=== PATIENT | female | born 1975 | race Caucasian/White ===

== ENCOUNTER 2016-11-20 12:43 | Emergency (ER) | payer OTHER, MEDICAID ==
[2016-11-20 12:59] VITALS: BP 89/31; PULSE 92; RESP 16; TEMP 98.4; O2SAT 98
--- NOTE | 2016-11-20 13:36 | DX ---
Chest, PA and Lateral Upright Views November 20, 2016 at 1:03 p.m. Clinical History: 41-year-old female with a cough for two weeks, chest congestion, and pain. Comparison Study: None. Findings: The lungs are hyperexpanded and there is mild central perihilar bronchial wall thickening. There is no focal alveolar consolidation, pleural effusion, peripheral interstitial edema, or pneumot horax. The cardiac silhouette size is asthenic. The trachea is midline. The osseous structures are ag e-appropriate. Impression: Lung hyperexpansion with mild perihilar bronchitis, but no focal alveolar consolidation.
--- NOTE | 2016-11-20 13:53 | UCPHY ---
H & P Time Seen by Provider: 11/20/16 13:52 Patient Type: New HPI/ROS: Chief complaint. Cough HPI. 41-year-old female cough for several days. The family has been sick in the they have been treating infections back and forth. Now she has a cough that is occasionally productive as well as low-grade fever. Slight sore throat. No vomiting or diarrhea. No shortness of breath or chest discomfort ROS Constitutional. Fever Eyes. no problems with vision ENT. no sore throat, no nasal drainage Cardiovascular. no chest pain Respiratory. Cough Abdominal. no abdominal pain, no nausea/vomiting, no diarrhea . no problems urinating MS. no calf pain/swelling, no neck/back pain, no joint pain Skin. no rash Lymph. no swollen glands Neuro. no headache, no dizziness, no difficulty walking or with speech Past Medical/Surgical History: Exercise-induced asthma Social History: , nonsmoker, no alcohol Smoking Status: Never smoked Physical Exam: General Appearance: Alert pleasant well-developed female mild distress vital signs are stable Eyes: Pupils equal and round no pallor or injection. ENT, pharynx mildly injected without exudate Respiratory: There are no retractions, lungs are clear to auscultation. Cardiovascular: Regular rate and rhythm. Gastrointestinal: Abdomen is soft and nontender, no masses, bowel sounds normal. Neurological: Awake and alert, sensory and motor exams grossly normal. Skin: Warm and dry, no rashes. Musculoskeletal: Neck is supple nontender. Extremities symmetrical, full range of motion. Psychiatric: Patient is oriented X 3, there is no agitation. Constitutional: Initial Vital Signs Temperature (C) 36.9 C 11/20/16 12:55 Heart Rate 92 11/20/16 12:55 Respiratory Rate 16 11/20/16 12:55 Blood Pressure 89/31 L 11/20/16 12:55 O2 Sat (%) 98 11/20/16 12:55 O2 Delivery Mode Room Air Allergies/Adverse Reactions: acetaminophen [From Percocet] Allergy (Unknown, Verified 11/20/16 12:58) oxycodone HCl [From Percocet] Allergy (Unknown, Verified 11/20/16 12:58) Home Medications: Medication Instructions Recorded Azithromycin [Zithromax] 250 mg PO DAILY #6 tab 11/20/16 Medical Decision Making - Diagnostics Imaging: Chest x-ray interpreted by me shows no evidence of pneumonia. Consistent with bronchitis ED Course/Re-evaluation: Patient and I discussed treatment plan, imaging study results, criteria for return importance of follow-up and further evaluation she expresses understanding and agreement Differential Diagnosis: Consistent with bronchitis. Bacterial verses viral. I considered pneumonia as well Departure - Departure Disposition: Home, Routine, Self-Care Clinical Impression: Bronchitis Condition: Good Instructions: Acute Bronchitis (ED) Additional Instructions: Use your inhaler for the next few days while ill. Zithromax is antibiotic. Return for worsening symptoms. Re-evaluation 2-3 days if not improving Referrals: Leobardo Wright MD [Medical Doctor] - 3-4 days, if not improved Prescriptions: Azithromycin [Zithromax] 250 mg PO DAILY #6 tab - PQRS PQRS Measurement: 134: Depression screening and followup, PRIME MD-PHQ2 (12 years and older) Over the last 2 weeks, how often have you been bothered by any of the following problems? 1. Feeling down, depressed, or hopeless? 2. Little interest or pleasure in doing things? Patient answered no to both 1 and 2 130: Documentation of medications. Reviewed all patient medications, doses, route and frequency. 226: Do you smoke? No.
== END 2016-11-20 14:10 | disposition home or self-care (01) ==
LOC: CED 12:43
DX: R05 Cough (principal); J45.909 Unspecified asthma, uncomplicated
CPT/HCPCS: 71020-PO; 99204-PO; G0463-PO

== ENCOUNTER → 2018-02-27 | Outpatient (CLI) | payer OTHER | LOC: CIMAGING 09:03 | PROVIDERS: ATTEND Nurse Practitioner Women's Health | DX: Z12.31 Encounter for screening mammogram for malignant neoplasm of breast (principal) ==

== ENCOUNTER → 2018-03-15 | Outpatient (CLI) | payer OTHER | LOC: CIMAGING 13:27 | PROVIDERS: ATTEND Nurse Practitioner Women's Health | DX: R92.0 Mammographic microcalcification found on diagnostic imaging of breast (principal) ==

== ENCOUNTER → 2018-04-09 | Day surgery (SDC) | payer OTHER ==
[~2018-04-09] MED LIST: BUPIVACAINE 0.5% 10 ML SDV ONE; LIDOCAINE 1% 300 MG/30 ML SDV ONE; THROMBIN (BOVINE) 5,000 UNIT VIAL TP ONE
== END | disposition home or self-care (01) ==
LOC: FIMAGING 07:23
PROVIDERS: ATTEND Hospitalist
PROC: 0HBT3ZX Excision of Right Breast, Percutaneous Approach, Diagnostic (ICD-10-PCS; principal; 2018-04-09)
DX: N60.11 Diffuse cystic mastopathy of right breast (principal)

== ENCOUNTER → 2018-08-08 | Outpatient (CLI) | payer OTHER | LOC: FIMAGING 08:56 | PROVIDERS: ATTEND Obstetrics & Gynecology | DX: N60.01 Solitary cyst of right breast (principal); N60.31 Fibrosclerosis of right breast ==